=== PATIENT | female | born 1935 | race Caucasian/White ===

== ENCOUNTER 2018-05-24 14:19 | Emergency (ER) | payer MEDICARE ==
[~2018-05-24] VITALS: Ht 157.5 cm; Wt 69.5 kg
[2018-05-24] MEDS ORDERED: L.E.T SOLUTION TP ONE ×2 (15:26→16:00)
[2018-05-24 15:47] VITALS: BP 160/58
== END 2018-05-24 16:09 | disposition home or self-care (01) ==
LOC: ED 16:03
DX: S01.511A Laceration without foreign body of lip, initial encounter (principal); W19.XXXA Unspecified fall, initial encounter; Y93.89 Activity, other specified; Y92.009 Unspecified place in unspecified non-institutional (private) residence as the place of occurrence of the external cause; Y99.8 Other external cause status
CPT/HCPCS: 12011; 99283